=== PATIENT | female | born 1965 | race Caucasian/White ===

== ENCOUNTER 2020-08-22 07:52 | Outpatient (REF) | payer OTHER, SELFPAY ==
[2020-08-28 02:32] LABS: HPV mRNA E6/E7 rflx Not Detected (Not Detected)
== END 2020-08-22 07:53 | disposition home or self-care (01) ==
LOC: HO.LAB 07:52
PROVIDERS: PCP Internal Medicine; Visit Provider Obstetrics & Gynecology
DX: Z01.419 Encounter for gynecological examination (general) (routine) without abnormal findings (principal)
CPT/HCPCS: 36415; 87624; 88142